=== PATIENT | male | born 1990 | race Asian ===

== ENCOUNTER 2018-04-27 18:37 | Emergency (ER) | payer OTHER ==
[~2018-04-27] VITALS: Ht 162.6 cm; Wt 73.0 kg
[2018-04-27 18:40] VITALS: BP 120/80
[2018-04-27 19:43] LABS: EOSINOPHILS % 3.7 % (0.0-5.0); HEMATOCRIT. 42.4 % (42.0-52.0); HEMOGLOBIN. 14.4 g/dL (14.0-18.0); LYMPHOCYTES % 26.7 % (20.0-50.0); MEAN CORPUSCULAR HEMOGLOBIN 29.5 pg (28.0-32.0); MEAN CORPUSCULAR VOLUME 86.8 fL (80.0-94.0); MEAN PLATELET VOLUME 9.2 fl (7.4-10.4); MONOCYTES % 9.8 % (2.0-8.0); NEUTROPHILS % 58.8 % (40.0-76.0); PLATELET 288 x1000/uL (130-400); RED BLOOD CELL COUNT 4.89 mill/uL (4.7-6.1); RED CELL DISTRIBUTION WIDTH 12.7 % (11.6-14.6)
[2018-04-27 19:45] LABS: CHLORIDE 109 mEq/L (98-107)
[2018-04-27 20:21] LABS: HEPATITIS B SURFACE ANTIGEN NEGATIVE
[2018-04-27 20:49] LABS: HEPATITIS B CORE AB IGM NEGATIVE
[2018-04-27 20:50] LABS: HEPATITIS A AB IGM NEGATIVE (NEGATIVE)
== END 2018-04-27 19:19 | disposition home or self-care (01) ==
LOC: ER 18:54
DX: Z77.21 Contact with and (suspected) exposure to potentially hazardous body fluids (principal)
CPT/HCPCS: 36415; 80053; 85025; 86705; 86709; 86803; 87340; 99284